=== PATIENT | female | born 1940 | race Two or more races ===

== ENCOUNTER 2022-10-21 16:37 | Inpatient (IN) | payer MEDICARE, OTHER ==
[~2022-10-21] VITALS: Ht 152.4 cm; Wt 49.0 kg
--- NOTE | 2022-10-21 16:50 | NUR ---
BIB RA 102 FROM [facility],STAF COULD NOT START A PIV FOR ANTIBIOTIC TREATMENT
--- NOTE | 2022-10-21 17:00 | NUR ---
BLOOD SAMPLE OBTAINED
--- NOTE | 2022-10-21 17:00 | NUR ---
ESTABLISHED IV LINE 22 G LEFT WRIST AND 20G ON RIGHT FOREARM
[2022-10-21] MEDS ORDERED: CEFEPIME 1 GM in IV D5W 50 ML IV ONE (17:30)
[2022-10-21] MEDS ORDERED: VANCOMYCIN 1 GM in IV D5W 250 ML IV ONE (17:30)
[2022-10-21] MEDS ORDERED: IV NS 0.9% 1,000 ML BAG IV ONE (17:30)
[2022-10-21] MEDS ORDERED: ANAS1TAB50 PO (17:35)
[2022-10-21] MEDS ORDERED: TRAZ-252 PO (17:35)
[2022-10-21] MEDS ORDERED: DOCU100C58 PO (17:35)
[2022-10-21] MEDS ORDERED: APIX2.5T PO (17:35)
[2022-10-21] MEDS ORDERED: SENN-261 PO (17:35)
[2022-10-21] MEDS ORDERED: TEMA15CA PO (17:35)
[2022-10-21] MEDS ORDERED: AMLO-213 PO (17:35)
[2022-10-21] MEDS ORDERED: METF-440 PO (17:35)
[2022-10-21] MEDS ORDERED: QUET100T PO (17:35)
[2022-10-21] MEDS ORDERED: FURO20TA4 PO (17:35)
[2022-10-21] MEDS ORDERED: VENL75CA62 PO (17:35)
--- NOTE | 2022-10-21 17:49 | NUR ---
COVID SWAB TAKEN
[2022-10-21 18:05] LABS: BASOPHILS # (AUTO) 0.1 K/uL (0.0-0.2); BASOPHILS % (AUTO) 0.8 % (0.0-2.0); EOSINOPHILS % (AUTO) 0.4 % (0.0-6.0); HEMATOCRIT 35 % (33-45); HEMOGLOBIN 11.3 g/dL (11.5-14.8); LYMPHOCYTES # (AUTO) 1.7 K/uL (0.8-4.8); LYMPHOCYTES % (AUTO) 19.1 % (20.0-44.0); MEAN CORPUSCULAR HGB CONC 32 g/dl (31.0-36.0); MEAN CORPUSCULAR VOLUME 95 fL (82-100); MONOCYTES # (AUTO) 0.4 K/uL (0.1-1.30); NEUTROPHILS # (AUTO) 6.7 K/uL (1.8-8.9); NEUTROPHILS % (AUTO) 75.7 % (43.0-81.0); PLATELET COUNT (AUTO) 258 K/uL (150-450); WHITE BLOOD COUNT (AUTO) 8.8 K/uL (4.3-11.0)
--- NOTE | 2022-10-21 18:10 | NUR ---
PAGED Mebelrama FOR PEER TO PEER CONSULT. WAITING FOR CALL BACK.
[2022-10-21 18:16] LABS: CALCIUM, SERUM 9.7 mg/dL (8.5-10.1); CARBON DIOXIDE 33 mmol/L (21-32); CHLORIDE 101 mmol/L (98-107); CREATININE 0.4 mg/dL (0.6-1.3); GLUCOSE 138 mg/dL (74-106); POTASSIUM 4.2 mmol/L (3.5-5.1); SODIUM SERUM 139 mmol/L (136-145); UREA NITROGEN, BLOOD 12 mg/dL (7-18)
[2022-10-21 18:29] LABS: ALANINE AMINOTRANSFERASE 16 U/L (12-78); ALKALINE PHOSPHATASE 99 U/L (46-116); ASPARTATE AMINOTRANSFERASE 18 U/L (15-37); BILIRUBIN,DIRECT 0.1 mg/dL (0.0-0.2); BILIRUBIN,TOTAL 0.5 mg/dL (0.2-1.0); TOTAL PROTEIN, SERUM 7.1 g/dL (6.4-8.2)
[2022-10-21] MEDS ORDERED: DILTIAZEM HCL 25 MG IV ONE (18:38)
[2022-10-21] MEDS ORDERED: DILTIAZEM HCL 25 MG IV IVP ONE (19:00)
--- NOTE | 2022-10-21 20:24 | NUR ---
RM 116-2
--- NOTE | 2022-10-21 20:51 | NUR ---
Report given to Edvin MCLAIN. [facility] room 115-1
[2022-10-21] MEDS ORDERED: ENOXAPARIN SODIUM 40 MG/0.4 ML DISP.SYRIN SQ SCH (21:00)
[2022-10-21] MEDS ORDERED: ACETAMINOPHEN 325 MG TABLET PO PRN (21:00)
[2022-10-21] MEDS ORDERED: ZOLPIDEM TARTRATE 5 MG TABLET PO PRN (21:00)
[2022-10-21] MEDS ORDERED: Z GUARD REMEDY 4 OZ OINT TP PRN (21:00)
[2022-10-21] MEDS ORDERED: MAG HYDROX/AL HYDROX/SIMETH 30 ML UDC PO PRN (21:00)
[2022-10-21] MEDS ORDERED: HYDROCODONE/APAP 5/325MG TABLET PO PRN (21:00)
[2022-10-21] MEDS ORDERED: MAGNESIUM HYDROXIDE 30 ML UDC PO PRN (21:00)
[2022-10-21] MEDS ORDERED: ONDANSETRON HCL/PF 4 MG/2 ML VIAL IVP PRN (21:00)
--- NOTE | 2022-10-21 21:00 | NUR ---
RN NOTE; RECEIVED PT FROM ER AWAKED AOX1 CONFUSED,ON RM AIR JUANJOSE WELL,SATING 97.6%,NO SIGN SOB/DISTRESS NOTED,NO SIGN OF PAIN/DISCOMFORT AT THIS TIME,IV ACCESS ON LAC 22G,RAC 20G SL,PATENT AND INTACT,FC IN PLACE DRAINING ANASTASIIA URINE,NO SIGN ABDOMINAL DISTENSION NOTED,SAFETY MEASURE IN PLACE,CALL LIGHT WITHIN REACH,WILL CONTINUE TO MONITOR.
--- NOTE | 2022-10-21 21:03 | NUR ---
TRANSFERRED TO ROOM VIA ACLS PROTOCOL
--- NOTE | 2022-10-21 23:55 | NUR ---
RN NOTE; DOC,VANE MILLER.ORDER IV NS 75ML/HR SCHEDULE.CARRIED OUT.
[2022-10-22] MEDS ORDERED: IV NS 0.9% 1,000 ML IV SCH
[2022-10-22] MEDS ORDERED: TEMAZEPAM 15 MG CAPSULE PO PRN (00:30)
[2022-10-22] MEDS ORDERED: INSULIN REGULAR, HUMAN 100 UNIT/ML 3 ML VIAL SQ PRN (01:00)
[2022-10-22] MEDS ORDERED: DEXTROSE 50%-WATER 50 ML DISP.SYRIN IV PRN (01:00)
[2022-10-22] MEDS: DILTIAZEM HCL 30 MG TABLET PO SCH ×3 (05:16→17:22)
[2022-10-22] MEDS ORDERED: CEFEPIME 1 GM in IV D5W 50 ML IV ONE (06:00)
--- NOTE | 2022-10-22 06:20 | NUR ---
RN CLOSING NOTE; PATIENT AWAKED AOX1 CONFUSED,ON RM AIR JUANJOSE WELL,SATING 98%,NO SIGN SOB/DISTRESS NOTED,NO SIGN OF PAIN/DISCOMFORT DURING SHIFT,DUE MEDS GIVEN ORDER,ALL NEEDS ATTENDED,IV ACCESS ON LAC 22G,RAC 20G SL,PATENT AND INTACT,FC IN PLACE DRAINING ANASTASIIA URINE OUTPUT,NO SIGN ABDOMINAL DISTENSION NOTED,SAFETY MEASURE IN PLACE,CALL LIGHT WITHIN REACH,WILL ENDORSED TO NEXT SHIFT.
[2022-10-22] MEDS ORDERED: CEFEPIME 1 GM VIAL ONE (06:22)
--- NOTE | 2022-10-22 07:10 | NUR ---
RN OPENING NOTE PATIENT ASLEEP IN BED, ON RM AIR JUANJOSE WELL,SATING 98%, NO SIGN SOB NOTED. IV ACCESS RIGHT WRIST 22G, PATENT AND INTACT, FC IN PLACE DRAINING ANASTASIIA URINE OUTPUT, NO SIGN ABDOMINAL DISTENSION NOTED,SAFETY MEASURE IN PLACE,CALL LIGHT WITHIN REACH, WILL CONTINUE TO MONITOR.
[2022-10-22] MEDS: PANTOPRAZOLE 40 MG TABLET.DR PO SCH (08:11)
[2022-10-22 08:16] LABS: BASOPHILS # (AUTO) 0.1 K/uL (0.0-0.2); BASOPHILS % (AUTO) 0.9 % (0.0-2.0); EOSINOPHILS % (AUTO) 1.2 % (0.0-6.0); HEMATOCRIT 34 % (33-45); LYMPHOCYTES # (AUTO) 1.8 K/uL (0.8-4.8); LYMPHOCYTES % (AUTO) 15.6 % (20.0-44.0); MEAN CORPUSCULAR HGB CONC 32 g/dl (31.0-36.0); MEAN CORPUSCULAR VOLUME 94 fL (82-100); MONOCYTES # (AUTO) 0.8 K/uL (0.1-1.30); MONOCYTES % (AUTO) 7.2 % (2.0-12.0); NEUTROPHILS # (AUTO) 8.8 K/uL (1.8-8.9); NEUTROPHILS % (AUTO) 75.1 % (43.0-81.0); PLATELET COUNT (AUTO) 272 K/uL (150-450); RED BLOOD CELL COUNT(AUTO) 3.64 MIL/uL (4.0-5.2); WHITE BLOOD COUNT (AUTO) 11.7 K/uL (4.3-11.0)
[2022-10-22] MEDS: BLOOD SUGAR DIAGNOSTIC 1 EACH STRIP VI SCH ×4 (08:21→22:59)
[2022-10-22 08:37] LABS: CALCIUM, SERUM 9.1 mg/dL (8.5-10.1); CARBON DIOXIDE 29 mmol/L (21-32); CHLORIDE 102 mmol/L (98-107); CREATININE 0.4 mg/dL (0.6-1.3); GLUCOSE 139 mg/dL (74-106); MAGNESIUM 1.9 mg/dL (1.8-2.4); PHOSPHORUS 2.8 mg/dL (2.5-4.9); POTASSIUM 2.9 mmol/L (3.5-5.1); SODIUM SERUM 139 mmol/L (136-145); UREA NITROGEN, BLOOD 9 mg/dL (7-18)
[2022-10-22] MEDS: VENLAFAXINE XR 75 MG CAP.SR.24H PO SCH (08:39)
[2022-10-22] MEDS: DOCUSATE SODIUM 100 MG CAPSULE PO SCH ×2 (08:39→16:44)
[2022-10-22] MEDS: SENNOSIDES 8.6 MG TABLET PO SCH (08:39)
[2022-10-22] MEDS: FUROSEMIDE 20 MG TABLET PO SCH (08:39)
[2022-10-22] MEDS: AMLODIPINE BESYLATE 10 MG TABLET PO SCH (08:40)
[2022-10-22] MEDS: ANASTROZOLE 1 MG TABLET PO SCH (08:44)
[2022-10-22] MEDS: APIXABAN 2.5 MG TABLET PO SCH ×2 (09:00→17:00)
[2022-10-22] MEDS: POTASSIUM CHLORIDE 20 MEQ TAB.PRT.SR PO SCH ×3 (10:34→12:50)
[2022-10-22] MEDS: CEFEPIME 2 GM in IV D5W 100 ML IV SCH (16:44)
[2022-10-22] MEDS: TRAZODONE 50 MG TABLET PO SCH (17:21)
[2022-10-22] MEDS: QUETIAPINE FUMARATE 25 MG TABLET PO SCH (17:23)
[2022-10-22] MEDS: VANCOMYCIN 0.75 GM in IV D5W 250 ML IV SCH (17:53)
--- NOTE | 2022-10-22 18:53 | NUR ---
PATIENT IS AWAKE IN BED, RESTING COMFORTABLE, ON RA, SAT 98%. IV ACCESS RIGHT WRIST 22G, FLUSHING WELL. PT CONFUSED AT TIMES, SOMETIMES ABLE TO ANSWER CORRECTLY. YEPEZ CATHETER IN PLACE DRAINING WELL. ALL MEDS ADMINISTERED, CARE PROVIDED, WILL ENDORSE TO THE RN ORTHO NURSE FOR SAMANTHA.
--- NOTE | 2022-10-22 19:35 | NUR ---
WOOL SPOTTER OPENING NOTE RECEIVED PATIENT IN BED; AWAKE, ALERT AND ORIENTED X 1. CONFUSED. ON ROOM AIR; TOLERATING WELL. BREATHING EVEN AND NONLABORED. NOT IN ANY FORM OF RESPIRATORY DISTRESS. ON TELEMETRY MONITORING A FIB CONTROLLED HR-108 BPM. WITH IV ACCESS ON RIGHT WRIST 22G; PATENT, INTACT AND SALINE LOCKED. WITH YEPEZ CATH IN PLACE DRAINING TO ANASTASIIA URINE. NEEDS ATTENDED. FALL AND SAFETY PRECAUTIONS IMPLEMENTED: BED ALARM ON, CALL LIGHT AND TABLE WITHIN REACH, SIDE RAILS UP X 3, BED IN LOWEST LOCKED POSITION. WILL CONTINUE TO MONITOR THROUGHOUT SHIFT.
[2022-10-22] MEDS: *INSULIN REGULAR(HUMULIN R)HUM 100 UNIT/ML VIAL SQ PRN (23:00)
[2022-10-23] MEDS: DILTIAZEM HCL 30 MG TABLET PO SCH ×5 (01:13→23:33)
[2022-10-23] MEDS: CEFEPIME 2 GM in IV D5W 100 ML IV SCH ×2 (05:02→16:51)
[2022-10-23 06:01] LABS: BASOPHILS # (AUTO) 0.1 K/uL (0.0-0.2); BASOPHILS % (AUTO) 0.9 % (0.0-2.0); EOSINOPHILS % (AUTO) 1.5 % (0.0-6.0); HEMATOCRIT 34 % (33-45); HEMOGLOBIN 11.1 g/dL (11.5-14.8); LYMPHOCYTES # (AUTO) 1.3 K/uL (0.8-4.8); LYMPHOCYTES % (AUTO) 11.1 % (20.0-44.0); MEAN CORPUSCULAR HGB CONC 33 g/dl (31.0-36.0); MEAN CORPUSCULAR VOLUME 94 fL (82-100); MONOCYTES # (AUTO) 0.8 K/uL (0.1-1.30); MONOCYTES % (AUTO) 6.6 % (2.0-12.0); NEUTROPHILS # (AUTO) 9.2 K/uL (1.8-8.9); NEUTROPHILS % (AUTO) 79.9 % (43.0-81.0); PLATELET COUNT (AUTO) 256 K/uL (150-450); RED BLOOD CELL COUNT(AUTO) 3.62 MIL/uL (4.0-5.2); WHITE BLOOD COUNT (AUTO) 11.4 K/uL (4.3-11.0)
[2022-10-23 06:08] LABS: CALCIUM, SERUM 9.2 mg/dL (8.5-10.1); CARBON DIOXIDE 30 mmol/L (21-32); CHLORIDE 102 mmol/L (98-107); CREATININE 0.4 mg/dL (0.6-1.3); GLUCOSE 158 mg/dL (74-106); POTASSIUM 2.9 mmol/L (3.5-5.1); SODIUM SERUM 138 mmol/L (136-145); UREA NITROGEN, BLOOD 11 mg/dL (7-18)
--- NOTE | 2022-10-23 06:45 | NUR ---
HUMAN SERVICES MANAGER CLOSING NOTE PATIENT IN BED; AWAKE, A/O X 1. CONFUSED. STABLE ON ROOM AIR. IN NO ACUTE DISTRESS. ON TELEMETRY MONITORING A FIB CONTROLLED HR-112 BPM. WITH IV ACCESS ON RIGHT WRIST 22G; PATENT, INTACT AND SALINE LOCKED. WITH YEPEZ CATH IN PLACE DRAINING TO ANASTASIIA URINE. ALL NEEDS ATTENDED. FALL AND SAFETY PRECAUTION MAINTAINED: BED ALARM ON, CALL LIGHT AND TABLE WITHIN REACH, SIDE RAILS UP X 3, BED IN LOWEST LOCKED POSITION. ENDORSED TO MORNING SHIFT FOR SAMANTHA.
--- NOTE | 2022-10-23 07:45 | NUR ---
WOUND CARE CONSULT: PT PRESENTS WITH RASH/RED SKIN CONDITION TO LARGE AREAS OF BODY INCLUDING ARMS, ABDOMEN, BACK AND BUTTOCKS, PRESENT ON ADMISSION. PT STATES THAT HER BACK IS ITCHY. DEFER TO PMD FOR SKIN CONDITION. PT ALSO NOTED TO HAVE INTACT DEEP TISSUE INJURIES TO SACRUM AND RT HEEL, PRESENT ON ADMISSION. DISCOLORATION NOTED TO LOWER LEGS, PRESENT ON ADMISSION. DR TAYLOR CALLED FOR DPM CONSULT. LOWER EXTREMITIES ARE CONTRACTED. MARLENI BENSON NOTED. IN AGREEMENT WITH PLAN OF CARE. Addendum: 10/23/22 at 0747 by TJ KENDALL WNDNU Amended: Links added.
[2022-10-23] MEDS: BLOOD SUGAR DIAGNOSTIC 1 EACH STRIP VI SCH ×4 (07:55→22:02)
[2022-10-23] MEDS ORDERED: POTASSIUM CHLORIDE 20 MEQ TAB.PRT.SR PO ONE (08:00)
[2022-10-23] MEDS ORDERED: POTASSIUM CHLORIDE 20 MEQ POWDER PACKET PO ONE ×3 (08:00→10:00)
--- NOTE | 2022-10-23 08:02 | NUR ---
HAIR BALER OPENING NOTE PATIENT IN BED; AWAKE, A/O X 1. CONFUSED. STABLE ON ROOM AIR. IN NO ACUTE DISTRESS. ON TELEMETRY MONITORING A FIB CONTROLLED. IV ACCESS ON RIGHT WRIST 22G; PATENT, INTACT AND SALINE LOCKED. WITH YEPEZ CATH IN PLACE DRAINING TO YELLOW COLOR URINE. ALL SAFETY PRECAUTION MAINTAINED: BED ALARM ON, CALL LIGHT AND TABLE WITHIN REACH, SIDE RAILS UP X 3, BED IN LOWEST LOCKED POSITION. BED ALARM ON
[2022-10-23] MEDS: APIXABAN 2.5 MG TABLET PO SCH ×3 (09:00→16:45)
[2022-10-23] MEDS: DOCUSATE SODIUM 100 MG CAPSULE PO SCH ×2 (10:03→16:38)
[2022-10-23] MEDS: ANASTROZOLE 1 MG TABLET PO SCH (10:03)
[2022-10-23] MEDS: PANTOPRAZOLE 40 MG TABLET.DR PO SCH (10:03)
[2022-10-23] MEDS: SENNOSIDES 8.6 MG TABLET PO SCH (10:03)
[2022-10-23] MEDS: VENLAFAXINE XR 75 MG CAP.SR.24H PO SCH (10:03)
[2022-10-23] MEDS: FUROSEMIDE 20 MG TABLET PO SCH (10:03)
[2022-10-23] MEDS: AMLODIPINE BESYLATE 10 MG TABLET PO SCH (10:04)
--- NOTE | 2022-10-23 10:57 | NUR ---
rn note gave 80 meq per order
--- NOTE | 2022-10-23 16:47 | NUR ---
rn note notified pharmacy that eliquis is shown from 10/22/2022. pharmacist said to undo 10/22/2022. only two doses of eliquis bid were given today at 1005 and 1645 as scheduled
[2022-10-23] MEDS: TRAZODONE 50 MG TABLET PO SCH (17:27)
[2022-10-23] MEDS: QUETIAPINE FUMARATE 25 MG TABLET PO SCH (17:27)
[2022-10-23] MEDS: VANCOMYCIN 0.75 GM in IV D5W 250 ML IV SCH (18:33)
--- NOTE | 2022-10-23 19:22 | NUR ---
SELF PAY COLLECTOR CLOSING NOTE PATIENT IN BED; AWAKE, A/O X 1. CONFUSED. STABLE ON ROOM AIR. IN NO ACUTE DISTRESS. ON TELEMETRY MONITORING A FIB CONTROLLED. IV ACCESS ON RIGHT WRIST 22G; PATENT, INTACT AND SALINE LOCKED. WITH YEPEZ CATH IN PLACE DRAINING TO YELLOW COLOR URINE. ALL SAFETY PRECAUTION MAINTAINED: BED ALARM ON, CALL LIGHT AND TABLE WITHIN REACH, SIDE RAILS UP X 3, BED IN LOWEST LOCKED POSITION. BED ALARM ON.ENDORSED TO NIGHT SHCHENTE RN FOR CONTUITY OF CARE
--- NOTE | 2022-10-23 20:00 | NUR ---
NEWSPAPER VENDOR NOTE PT IN BED ASLEEP, AROUSABLE. NO DISTRESS OR DISCOMFORT NOTED. NO S/S OF PAIN NOTED. PT IN ISOLATION FOR SCABIES RESULT PENDING. A/O X 1. ON TELE A FIB UNDCONTROLLED HR 130'S. IVF NS INFUSING AT 60 ML/HR, NO S/S OF INFILTRATION NOTED. KEPT H ER DRY AND CLEAN. F/C INTACT AND PATENT DRAINING YELLOWISH COLOR URINE. VSS. KEPT HOB ELEVATED. SIDE RAILS UP X 2 AND CALL LIGHT WITHIN REACH. CONTINUE TO MONITOR HER.
[2022-10-23] MEDS: *INSULIN REGULAR(HUMULIN R)HUM 100 UNIT/ML VIAL SQ PRN (22:04)
[2022-10-24] MEDS: DILTIAZEM HCL 30 MG TABLET PO SCH ×4 (05:27→23:52)
[2022-10-24] MEDS: CEFEPIME 2 GM in IV D5W 100 ML IV SCH ×2 (05:27→16:40)
[2022-10-24 07:23] LABS: BASOPHILS # (AUTO) 0.1 K/uL (0.0-0.2); BASOPHILS % (AUTO) 1.1 % (0.0-2.0); EOSINOPHILS % (AUTO) 3.3 % (0.0-6.0); HEMATOCRIT 36 % (33-45); HEMOGLOBIN 11.3 g/dL (11.5-14.8); LYMPHOCYTES # (AUTO) 1.6 K/uL (0.8-4.8); LYMPHOCYTES % (AUTO) 12.8 % (20.0-44.0); MEAN CORPUSCULAR HGB CONC 32 g/dl (31.0-36.0); MEAN CORPUSCULAR VOLUME 95 fL (82-100); MONOCYTES # (AUTO) 0.9 K/uL (0.1-1.30); MONOCYTES % (AUTO) 7.8 % (2.0-12.0); NEUTROPHILS # (AUTO) 9.1 K/uL (1.8-8.9); PLATELET COUNT (AUTO) 280 K/uL (150-450); RED BLOOD CELL COUNT(AUTO) 3.72 MIL/uL (4.0-5.2); WHITE BLOOD COUNT (AUTO) 12.1 K/uL (4.3-11.0)
[2022-10-24] MEDS: PANTOPRAZOLE 40 MG TABLET.DR PO SCH (07:28)
[2022-10-24] MEDS: BLOOD SUGAR DIAGNOSTIC 1 EACH STRIP VI SCH ×4 (07:29→21:58)
--- NOTE | 2022-10-24 07:30 | NUR ---
RN NOTE RECEIVED PATIENT IN BED RESTING ALERT ORIENTED X0 NONVERBAL,OPEN EYES,ON ROOM AIR O2:97% IV SIDE IS ON RIGHT FOREARM INTACT PATENT,YEPEZ CATH IN PLACE URINE DRAINING BY GRAVITY,SAFETY MEASURE IMPLEMENT BED IN LOW POSITION AND LOCKED,CALL LIGHT WITHIN REACH HEAD OF THE BED ELEVATED CONTINUE TO MONITOR.
[2022-10-24 07:53] LABS: CALCIUM, SERUM 9.3 mg/dL (8.5-10.1); CARBON DIOXIDE 27 mmol/L (21-32); CHLORIDE 103 mmol/L (98-107); CREATININE 0.4 mg/dL (0.6-1.3); GLUCOSE 146 mg/dL (74-106); PHOSPHORUS 2.9 mg/dL (2.5-4.9); POTASSIUM 3.9 mmol/L (3.5-5.1); SODIUM SERUM 138 mmol/L (136-145); UREA NITROGEN, BLOOD 12 mg/dL (7-18)
[2022-10-24] MEDS: SENNOSIDES 8.6 MG TABLET PO SCH (08:44)
[2022-10-24] MEDS: FUROSEMIDE 20 MG TABLET PO SCH (08:44)
[2022-10-24] MEDS: DOCUSATE SODIUM 100 MG CAPSULE PO SCH ×2 (08:44→17:15)
[2022-10-24] MEDS: ANASTROZOLE 1 MG TABLET PO SCH (08:45)
[2022-10-24] MEDS: AMLODIPINE BESYLATE 10 MG TABLET PO SCH (08:45)
[2022-10-24] MEDS: APIXABAN 2.5 MG TABLET PO SCH ×2 (08:48→17:17)
[2022-10-24] MEDS: VENLAFAXINE XR 75 MG CAP.SR.24H PO SCH (08:51)
[2022-10-24] MEDS ORDERED: PERMETHRIN 5% CRM 60 GM TUBE TP ONE (11:00)
[2022-10-24] MEDS: METOPROLOL TARTRATE 25 MG TABLET PO SCH ×2 (12:36→21:20)
[2022-10-24] MEDS: IV NS 0.9% 1,000 ML IV PRN (12:58)
[2022-10-24] MEDS: TRAZODONE 50 MG TABLET PO SCH (17:15)
[2022-10-24] MEDS: QUETIAPINE FUMARATE 25 MG TABLET PO SCH (17:15)
--- NOTE | 2022-10-24 19:11 | NUR ---
RN NOTE PATIENT REMAINS ALERT ORIENTED X0 OPEN EYES,ON ROOM AIR O2:97% IV SIDE IS ON RIGHT FOREARM INTACT PATENT,YEPEZ CATH IN PLACE URINE DRAINING BY GRAVITY,ALL DUE MEDS GIVEN MD ORDERED KEPT CLEAN AND DRY ALL THE TIME,KEPT HEAD OF THE BED ELEVATED,SCABIES CREAM APPLIED,ENDORSE NEXT COMING SHIFT FOR CONTINUATION OF CARE
--- NOTE | 2022-10-24 19:30 | NUR ---
MS RN OPENING NOTE RECEIVED PT IN BED ASLEEP, AROUSABLE. CURRENTLY ON RA, TOLERATING WELL. NO S/SX OF ACUTE RESPI DISTRESS NOTED AT THIS TIME. NO SOB. BREATHING IS EVEN AND UNLABORED. IV ACCESS ON R WRIST #22g, PATENT AND INTACT, RUNNING NS @ 60 CC/HR. F/C NOTED, DRAINING YELLOW-COLORED URINE BY GRAVITY. ALL SAFETY MEASURES IN PLACE: BED LOCKED IN LOW POSITION. BED ALARM ON. HOB ELEVATED. SIDE RAILS UP X 3, CALL LIGHT WITHIN REACH. WILL CONTINUE TO MONITOR PT.
[2022-10-24 20:00] VITALS: BP 103/58
[2022-10-24] MEDS: *INSULIN REGULAR(HUMULIN R)HUM 100 UNIT/ML VIAL SQ PRN (21:59)
[2022-10-24] MEDS ORDERED: VITAMINS A AND D 56.7 GM TUBE TP PRN (22:00)
[2022-10-25 04:00] VITALS: BP 116/60
[2022-10-25] MEDS: CEFEPIME 2 GM in IV D5W 100 ML IV SCH (04:06)
--- NOTE | 2022-10-25 04:06 | NUR ---
iv line pulled out. new IV access inserted : L wrist #[id number], patent and intact.
[2022-10-25] MEDS: IV NS 0.9% 1,000 ML IV PRN (04:13)
[2022-10-25] MEDS: DILTIAZEM HCL 30 MG TABLET PO SCH ×2 (05:42→12:00)
--- NOTE | 2022-10-25 06:26 | NUR ---
MS RN CLOSING NOTE NO SIGNIFICANT CHANGE T/O THE NIGHT. ALL DUE MEDS GIVEN. NEEDS MET. PM CARE DONE. WILL ENDORSE TO AM SHIFT NURSE FOR SAMANTHA.
[2022-10-25 07:02] LABS: CALCIUM, SERUM 9.5 mg/dL (8.5-10.1); CARBON DIOXIDE 28 mmol/L (21-32); CHLORIDE 103 mmol/L (98-107); CREATININE 0.4 mg/dL (0.6-1.3); GLUCOSE 151 mg/dL (74-106); POTASSIUM 3.6 mmol/L (3.5-5.1); SODIUM SERUM 138 mmol/L (136-145); UREA NITROGEN, BLOOD 15 mg/dL (7-18)
--- NOTE | 2022-10-25 07:10 | NUR ---
RN NOTE RECEIVED PATIENT IN BED RESTING ALERT ORIENTED X0 VERBALLY RESPONSIVE OPEN EYES,ON ROOM AIR O2:97% IV SIDE IS ON RIGHT FOREARM INTACT PATENT,YEPEZ CATH IN PLACE URINE DRAINING BY GRAVITY,SAFETY MEASURE IMPLEMENT BED IN LOW POSITION AND LOCKED,CALL LIGHT WITHIN REACH HEAD OF THE BED ELEVATED CONTINUE TO MONITOR.
[2022-10-25] MEDS: PANTOPRAZOLE 40 MG TABLET.DR PO SCH (07:32)
[2022-10-25] MEDS: BLOOD SUGAR DIAGNOSTIC 1 EACH STRIP VI SCH ×2 (07:33→12:09)
[2022-10-25] MEDS: DOCUSATE SODIUM 100 MG CAPSULE PO SCH (08:53)
[2022-10-25] MEDS: ANASTROZOLE 1 MG TABLET PO SCH (08:53)
[2022-10-25] MEDS: VENLAFAXINE XR 75 MG CAP.SR.24H PO SCH (08:53)
[2022-10-25] MEDS: SENNOSIDES 8.6 MG TABLET PO SCH (08:53)
[2022-10-25] MEDS: FUROSEMIDE 20 MG TABLET PO SCH (08:53)
[2022-10-25] MEDS: AMLODIPINE BESYLATE 10 MG TABLET PO SCH (08:54)
[2022-10-25] MEDS: METOPROLOL TARTRATE 25 MG TABLET PO SCH (08:54)
[2022-10-25] MEDS: APIXABAN 2.5 MG TABLET PO SCH (08:57)
[2022-10-25] MEDS ORDERED: METO25TA20 PO (09:56)
[2022-10-25 12:00] VITALS: BP 132/78
--- NOTE | 2022-10-25 12:00 | NUR ---
CHLORINE CELLS OPERATOR NOTE PATIENT DISCHARGE ASSISTED LIVING IN STABLE CONDITION,ALERT ORIENTED X1 VERBALLY RESPONSIVE NO PAIN NO SOB NOT ACUTE DISTRESS NOTED.ON ROOM AIR O2:98% IV REMOVED NO BLEEDING NOTED,DRESSING INTACT,PATIENT LEFT HOSPITAL WITH ACCOMPANIED BY 2 FACILITIES PROJECT MANAGER FROM [employer],EDUCATION PROVIDED REGARDING MEDS AND F/U WITH PCP.
== END 2022-10-25 12:50 | DRG 606 ==
LOC: ER 16:48 → MEDSG1 20:52 → TELE1 21:03 → MEDSG1 10-24 08:50
PROVIDERS: ADMIT Student in an Organized Health Care Education/Training Program; ATTEND Internal Medicine
PROC: 0HB5XZX Excision of Chest Skin, External Approach, Diagnostic (ICD-10-PCS; principal; 2022-10-23)
DX: R21 Rash and other nonspecific skin eruption (principal); G93.41 Metabolic encephalopathy; D68.59 Other primary thrombophilia; L85.3 Xerosis cutis; S30.810A Abrasion of lower back and pelvis, initial encounter; S30.811A Abrasion of abdominal wall, initial encounter; I48.91 Unspecified atrial fibrillation; X58.XXXA Exposure to other specified factors, initial encounter; Y92.9 Unspecified place or not applicable; Z20.822 Contact with and (suspected) exposure to COVID-19; E11.9 Type 2 diabetes mellitus without complications; Z79.84 Long term (current) use of oral hypoglycemic drugs; Z79.01 Long term (current) use of anticoagulants; Z79.899 Other long term (current) drug therapy; D64.9 Anemia, unspecified; I10 Essential (primary) hypertension; F29 Unspecified psychosis not due to a substance or known physiological condition; F03.90 Unspecified dementia, unspecified severity, without behavioral disturbance, psychotic disturbance, mood disturbance, and anxiety; Z74.01 Bed confinement status; Z79.811 Long term (current) use of aromatase inhibitors; Z74.09 Other reduced mobility; L89.616 Pressure-induced deep tissue damage of right heel; M24.561 Contracture, right knee; M24.562 Contracture, left knee
CPT/HCPCS: 36415; 71045-TC; 80048-TC; 80076-TC; 82962-TC; 83605-TC; 83735-TC; 84100-TC; 84132-TC; 84484-TC; 85025-TC; 85730-TC; 87040-TC; 87081-TC; 92526; 92611-TC; 93307-TC; 97110-TC; 97530-TC; A4223; A6403; C9803; G0378; J0692; J1650; J1815; J3370; J3490; J7030; J7060